=== PATIENT | male | born 1955 | race Caucasian/White ===

== ENCOUNTER 2017-07-06 16:14 | Inpatient (IN) | payer OTHER ==
[~2017-07-06] VITALS: Ht 188 cm; Wt 107.5 kg
[2017-07-06 17:16] LABS: BASOPHIL COUNT 0.1 K/uL (0-0.1); EOSINOPHIL (%) 0.3 % (0-5); HEMATOCRIT 46.3 % (38.0-50.0); IMMATURE GRANULOCYTE (%) 0.1 % (0.0-0.7); INSTRUMENT ABS NEUTROPHIL CT 4.5 K/uL; LYMPHOCYTE COUNT 2.2 K/uL (1.0-2.8); MCH 29.7 PG (29.0-34.0); MCHC 35.4 G/DL (30.0-36.0); MCV 83.9 FL (86-99); MEAN PLAT.VOLUME 9.5 uM^3 (9.0-12.4); MONOCYTE (%) 7.6 % (3-12); MONOCYTE COUNT 0.6 K/uL (0-0.8); NEUTROPHIL (%) 61.5 % (45-76); NEUTROPHIL COUNT 4.5 K/uL (1.8-6.4); PLATELET COUNT 218 K/uL (156-360); RBC DIS.WIDTH-CV 13.2 % (11.8-14.6); RBC DIS.WIDTH-SD 40.5 % (39-53); RED BLOOD COUNT 5.52 M/uL (4.00-5.50); WHITE BLOOD COUNT 7.3 K/uL (4.1-10.2)
[2017-07-06 17:24] LABS: CHLORIDE 101 mEq/L (99-109); POTASSIUM 4.1 mEq/L (3.7-5.4); SODIUM 139 mEq/L (136-147)
[2017-07-06 17:25] LABS: MAGNESIUM 2.1 mg/dL (1.3-2.7)
[2017-07-06 17:27] LABS: GLUCOSE 111 mg/dL (70-99)
[2017-07-06 17:28] LABS: ANION GAP 19 MEQ/L (2-14)
[2017-07-06 17:29] LABS: TOTAL BILIRUBIN 0.7 mg/dL (0.0-1.0)
[2017-07-06 17:30] LABS: SERUM ETHYL ALCOHOL 346 mg/dL
[2017-07-06 17:31] LABS: ALKALINE PHOSPHATASE 76 IU/L (3-129); GFR ESTIMATE (CALCULATED) > 59 mL/min/ (58.99-99999)
[2017-07-06 17:33] LABS: UREA NITROGEN (BUN) 11 mg/dL (9-23)
[2017-07-06 17:34] LABS: SALICYLATE < 5.0 MG/DL (15-30)
[2017-07-06 20:26] LABS: ADD MIUA? YES; BILIRUBIN NEGATIVE; BLOOD SMALL; COLOR YELLOW ((YELLOW)); GLUCOSE (STRIP) NEGATIVE; KETONES 5; LEUKOCYTES NEGATIVE; NITRITE NEGATIVE; PROTEIN (STRIP) 100; SPECIFIC GRAVITY 1.018 (1.000-1.030); UROBILINOGEN 0.2 MG/DL (0.2-1.0)
[2017-07-06 20:32] LABS: BACTERIA NONE SEEN /HPF; EPITHELIAL CELLS RARE /HPF; HYALINE CASTS 0-5 /LPF; MUCUS TRACE /LPF; RED BLOOD CELLS 0-5 /HPF (0-5); UCUL ADDED? NO; WHITE BLOOD CELLS 0-5 /HPF (0-5)
[2017-07-06 20:36] LABS: AMPHETAMINE NEGATIVE (500 ng/mL); BARBITURATES NEGATIVE (200 ng/mL); BENZODIAZEPINES NEGATIVE (150 ng/mL); COCAINE NEGATIVE (150 ng/mL); INTERNAL CONTROLS VALID? YES; METHADONE NEGATIVE (200 ng/mL); METHAMPHETAMINE NEGATIVE (500 ng/mL); OPIATES (MORPHINE) NEGATIVE (100 ng/mL); OXYCODONE NEGATIVE (100 ng/mL); PHENCYCLIDINE NEGATIVE (25 ng/mL); PROPOXYPHENE NEGATIVE (300 ng/mL); THC CANNABINOIDS NEGATIVE (50 ng/mL); TRICYCLIC ANTIDEPRESSANTS NEGATIVE (300 ng/mL)
[2017-07-07 11:42] VITALS: BP 173/86
[2017-07-07 15:38] VITALS: BP 142/68
[2017-07-08 07:54] VITALS: BP 124/59
[2017-07-08 15:34] VITALS: BP 131/90
[2017-07-09 04:45] VITALS: BP 133/73
[2017-07-09 08:01] VITALS: BP 122/61
[2017-07-09 15:39] VITALS: BP 167/83
[2017-07-09 18:29] VITALS: BP 134/74
[2017-07-09 22:15] LABS: C DIFF TOXIN NEGATIVE (NEGATIVE)
[2017-07-09 22:16] LABS: PROBE CHECK PASS; SPECIMEN PROCESSING CONTROL PASS
[2017-07-10 07:59] VITALS: BP 127/58
[2017-07-10 15:31] VITALS: BP 148/67
[2017-07-11 07:52] VITALS: BP 129/56
[2017-07-11 15:26] VITALS: BP 136/63
[2017-07-12 08:00] VITALS: BP 129/65
[2017-07-12] MEDS ORDERED: SINEQUAN25 MG PO (09:34)
[2017-07-12] MEDS ORDERED: SERTRALINE HCL100 MG PO (09:34)
== END 2017-07-12 12:48 | disposition home or self-care (01) | DRG 897 ==
LOC: EME 16:14 → 1WEST 07-07 06:57 → EDOF 07-07 06:57 → ENRESERV 07-07 11:03 → 1WEST 07-07 11:33
PROVIDERS: Emergency Medicine; Psychiatry & Neurology Psychiatry
DX: F10.239 Alcohol dependence with withdrawal, unspecified (principal); F33.2 Major depressive disorder, recurrent severe without psychotic features; G47.00 Insomnia, unspecified; X78.9XXA Intentional self-harm by unspecified sharp object, initial encounter; X78.8XXA Intentional self-harm by other sharp object, initial encounter; S51.812A Laceration without foreign body of left forearm, initial encounter; S61.511A Laceration without foreign body of right wrist, initial encounter; S61.512A Laceration without foreign body of left wrist, initial encounter; M85.80 Other specified disorders of bone density and structure, unspecified site; Y90.8 Blood alcohol level of 240 mg/100 ml or more; Z59.0 Homelessness; F41.9 Anxiety disorder, unspecified; Z87.828 Personal history of other (healed) physical injury and trauma
CPT/HCPCS: 71020; 73130; 80053; 81003; 83735; 85025; 87493; 90839; 97150 GO; 97166 GO; 99281; 99284; G0480; J2060